=== PATIENT | female | born 1965 | race Caucasian/White ===

== ENCOUNTER 2024-09-11 12:29 | Observation (INO) | payer OTHER ==
[~2024-09-11] VITALS: Ht 160 cm; Wt 59.6 kg
[2024-09-11] VITALS (31 sets, daily range): BP systolic 98–153; BP diastolic 51–87
--- NOTE | 2024-09-11 12:30 | NUR ---
PT AMBULATED TO ROOM 10, CHANGED INTO GOWN AND CONNECTED TO MONITORS.
[2024-09-11] MEDS ORDERED: ASPIRIN 81 MG/TAB PO ONE (12:40)
[2024-09-11] MEDS ORDERED: NITROGLYCERIN 0.4 MG/TAB SL ONE (12:55)
[2024-09-11 12:56] LABS: BASO% 0.3 % (0-3); EOS% 0.6 % (0-8); HEMATOCRIT 39.8 % (37.0-47.0); HEMOGLOBIN 13.2 g/dl (12.0-16.0); IMMATURE GRANULOCYTES 0.2 % (0.0-5.0); LYMPH% 22.2 % (15-41); MEAN CELL VOLUME 91.3 fL CALC (80.0-100.0); MEAN CORPUSCULAR HGB 30.3 pG CALC (26.0-32.0); MEAN CORPUSCULAR HGB CONC 33.2 g/dL CAL (32.0-36.0); MONO% 6.3 % (2-13); NEUT# 6.93 thou/uL (2.00-7.15); NEUT% 70.4 % (42-76); RED BLOOD COUNT 4.36 mill/uL (4.20-5.60); RED CELL DISTRI WIDTH 12.4 % (11.5-15.5)
[2024-09-11 13:09] LABS: ALBUMIN 4.7 g/dL (3.2-5.0); ALKALINE PHOSPHATASE 79 u/l (38-126); ANION GAP 15 (6-22 (CALC)); BILIRUBIN, TOTAL 0.6 mg/dL (0.02-1.3); BUN 13 mg/dL (8-23); BUN/CREATININE RATIO 17 (12-20 (CALC)); CARBON DIOXIDE 23 mmol/l (22-30); CHLORIDE 105 mmol/l (95-108); CREATININE 0.8 mg/dL (0.5-1.0); ESTIMATED GFR 84 ML/MIN (>=90 (CALC)); POTASSIUM 3.4 mmol/l (3.5-5.1); SGOT/AST 39 u/l (9-36); SODIUM 139 mmol/l (137-146); TOTAL PROTEIN 7.9 g/dL (6.3-8.2)
--- NOTE | 2024-09-11 14:40 | NUR ---
PT AMBULATED TO WITHOUT DIFFICULTIES.
--- NOTE | 2024-09-11 16:13 | NUR ---
PT UPDATED ON STATUS, GIVEN WARM BLANKETS FOR COMFORT.
[2024-09-11] MEDS ORDERED: MAGNESIUM HYDROXIDE 30 ML UDC PO PRN (16:45)
[2024-09-11] MEDS ORDERED: ACETAMINOPHEN 325 MG/TAB PO PRN (16:45)
[2024-09-11 17:12] LABS: CHOLESTEROL HDL RATIO 5.6 (<4.4 (CALC))
--- NOTE | 2024-09-11 17:15 | NUR ---
PT TALKING ON PHONE, NO NEEDS AT THIS TIME.
[2024-09-11 17:35] LABS: TSH, 3RD GENERATION 3.87 uIU/mL (0.47 - 4.68)
--- NOTE | 2024-09-11 18:22 | NUR ---
PT RESTING, NO NEEDS AT THIS TIME.
--- NOTE | 2024-09-11 18:52 | NUR ---
PT REPORT TO MS NURSE.
--- NOTE | 2024-09-11 20:57 | NUR ---
CALLED RESEARCH AIDE DR. RICKETTS, NEW ORDER CBC AND CMP AND REPEAT EKG IN AM.ORDER IN PLACED.
[2024-09-11] MEDS ORDERED: ENOXAPARIN SODIUM 40 MG/0.4 ML SYR SC SCH (21:00)
[2024-09-11] MEDS ORDERED: ATORVASTATIN CALCIUM 40 MG/TAB PO SCH (21:00)
--- NOTE | 2024-09-11 21:00 | NUR ---
RECEIVED REPORT FROM NURSE CJ, PATIENT TRANSPORTED VIA WHEELCHAIR, ARRIVED MS UNIT AT 2004, PATIENT ALERT ORIENTED, DENIES CHEST DISCOMFORTS AT THIS TIME, PATIENT ON TELEMETRY # 5, ADMISSION ASSESSMENT COMPLETED, PATIENT ORIENTED TO ROOM AND CALL JOSÉ MIGUEL VILLELA, IV ON RAC G 20 PATENT FLUSHES WELL, CALL LIGHT WITHIN REACHED.
--- NOTE | 2024-09-11 22:00 | NUR ---
PATIENT AWARE OF HIGH CHOLESTEROL LEVEL, REFUSED ATORVASTATIN, STATED MAKES HER HAVE JOINT PAIN, AND THAT HER FAMILY MD IN [place] PRESCRIBED NIACINAMIDE AND IS TAKING HOMEOPATHIC MEDICINE, PATIENT STATED ONCE SHE GETS BACK TO [place] WILL DISCUSS IT WITH HER FAMILY MD.
[2024-09-11] MEDS ORDERED: POTASSIUM CHLORIDE 20MEQ 100 ML IV ONE (22:30)
--- NOTE | 2024-09-11 23:05 | NUR ---
Nasir OROSCO ORDERED BY , MED VERIFIED WITH ANOTHER NURSE, CURRENTLY INFUSING.
--- NOTE | 2024-09-11 23:26 | NUR ---
K RIDER CURRENTLY INFUSING, C/O BURNING, IV SITE APPEARS HEALTHY, COLD PACK APPLIED, PATIENT STILL REFUSED, OFFERED TO HAVE FLUIDS INFUSING TOGETHER WITH THE K RIDER STILL REFUSED, PATIENT EDUCATED, OFFERED GATORADE, ACCEPTED, NO OTHER COMPLAINTS AT THIS TIME.
[2024-09-12 00:35] VITALS: BP 97/59
--- NOTE | 2024-09-12 03:59 | NUR ---
GARMENT PARTS CUTTER MACHINE IN ROOM FOR MORNING BLOOD DRAW, PATIENT NO DISCOMFORTS NOTED AT THIS TIME, CALL LIGHT WITHIN REACHED.
[2024-09-12 04:34] VITALS: BP 91/44
[2024-09-12 05:45] LABS: BASO% 0.4 % (0-3); EOS% 0.6 % (0-8); HEMATOCRIT 36.6 % (37.0-47.0); HEMOGLOBIN 12.2 g/dl (12.0-16.0); IMMATURE GRANULOCYTES 0.2 % (0.0-5.0); LYMPH% 36.8 % (15-41); MEAN CELL VOLUME 91.7 fL CALC (80.0-100.0); MEAN CORPUSCULAR HGB 30.6 pG CALC (26.0-32.0); MEAN CORPUSCULAR HGB CONC 33.3 g/dL CAL (32.0-36.0); MONO% 10.3 % (2-13); NEUT# 2.67 thou/uL (2.00-7.15); NEUT% 51.7 % (42-76); RED BLOOD COUNT 3.99 mill/uL (4.20-5.60); RED CELL DISTRI WIDTH 12.6 % (11.5-15.5)
[2024-09-12 06:04] LABS: BILIRUBIN, TOTAL 0.7 mg/dL (0.02-1.3); CREATININE 0.7 mg/dL (0.5-1.0); TOTAL PROTEIN 6.4 g/dL (6.3-8.2)
[2024-09-12 06:10] LABS: POTASSIUM 4.1 mmol/l (3.5-5.1)
[2024-09-12 06:50] VITALS: BP 114/65
[2024-09-12 06:53] VITALS: BP 136/63
--- NOTE | 2024-09-12 07:11 | NUR ---
pts accu check is 16 [id number]
--- NOTE | 2024-09-12 07:53 | NUR ---
SHIFT CHANGE REPORT, PT AWAKE ALERT AND ORIENTED SITTING UP IN BED CONVERSING ON PHONE, DENIES DISCOMFORT, TELE MONITOR IN PLACE, CALL [place] IN REACH AND BED LOCKED IN LOWEST POSITION.
[2024-09-12] MEDS ORDERED: ASPIRIN 81 MG/TAB PO SCH (09:00)
[2024-09-12] MEDS ORDERED: ATORVASTATIN CA40 MG PO (10:36)
[2024-09-12] MEDS ORDERED: ASPIRIN 81 LOW81 MG PO (10:36)
[2024-09-12] MEDS ORDERED: NITROSTAT0.4 MG SL (10:37)
[2024-09-12] MEDS ORDERED: ZETIA10 MG PO (10:37)
--- NOTE | 2024-09-12 11:51 | NUR ---
Discharge instructions given. Patient verbalizes understanding of same. Discharged in good condition via Wheelchair to Home with *Other. All belongings sent with pt. PT STATED SHE DROVE HER CAR HERE AND WILL DRIVE BACK TO [place].
--- NOTE | 2024-09-15 13:11 | NUR ---
Discharge follow up call completed 09/15/24. Pt states she is feeling well and just taking things slow until she sees her PCP on 09/22/24. Pt lives in [place] and returned home after being discharged. No needs or concerns verbalized at this time. Patient appreciated follow up call.
== END 2024-09-12 11:49 | disposition home or self-care (01) | DRG 313 ==
LOC: ED 12:29 → ED-I 16:20 → ED 16:38 → MS2 16:39
PROVIDERS: Family Medicine; ADMIT Internal Medicine; ATTEND Internal Medicine
DX: R07.89 Other chest pain (principal); E87.6 Hypokalemia; I10 Essential (primary) hypertension; E78.01 Familial hypercholesterolemia; T46.6X6A Underdosing of antihyperlipidemic and antiarteriosclerotic drugs, initial encounter; Z91.128 Patient's intentional underdosing of medication regimen for other reason
CPT/HCPCS: G0378; J1650; J3480